=== PATIENT | male | born 1985 | race Caucasian/White ===

== ENCOUNTER → 2017-05-23 | Outpatient (CLI) | payer OTHER ==
--- NOTE | 2017-05-24 10:29 | MRI ---
STUDY: MRI OF THE LUMBAR SPINE HISTORY: Degenerative disc disease L5/S1 level. Comparison: None. Technique: Multiplanar multi-sequence MRI of the lumbar spine was performed. Sagittal T1, sagittal T 2, and STIR images, axial T1, and axial T2 images were obtained. Findings: Sagittal images: Vertebral body heights and alignment are within normal limits. Marrow signal is age- appropriate. There is degenerative endplate change identified, with Modic type 1 change at the opposi ng endplates of L5/S1. There is multilevel degenerative disc disease, most notable at L4/5 and L5/S1. The conus medullaris is normal appearance terminating at the level of L1. Axial images: T12 -- L1: There is bilateral facet arthropathy and ligamentum flavum infolding. The central canal and neural foramina are adequate. L1 -- L2: There is bilateral facet arthropathy and ligamentum flavum infolding. The central canal a nd neural foramina are adequate. L2 -- L3: There is bilateral facet arthropathy and ligamentum flavum infolding. The central canal a nd neural foramina are adequate. L3 -- L4: There is a broad-based disc bulge. There is bilateral facet arthropathy and ligamentum fl avum infolding. This results in mild central canal stenosis. The neural foramina are adequate. L4 -- L5: There is a broad-based disc bulge, bilateral facet arthropathy and ligamentum flavum infol ding. This results in moderate central canal stenosis. The neural foramina are adequate. L5 -- S1: There is a broad-based disc bulge, bilateral facet arthropathy and ligamentum flavum infol ding. There is a superimposed focal right paracentral disc herniation. This results in effacement o f the anterior epidural space, but no significant spinal stenosis. The right neural foramen is adequ ate. There is moderate left neural foraminal stenosis. IMPRESSION: 1. Multilevel lumbar spondylosis, most notable at L5/S1. 2. Disc bulge with focal right paracentral disc herniation at L5/S1. 3. Moderate spinal stenosis at L4/5. 4. Moderate left neural foraminal stenosis at L5/S1. Reported By:
== END | disposition home or self-care (01) ==
LOC: RAD 15:11
PROVIDERS: ATTEND Internal Medicine
DX: M51.36 Other intervertebral disc degeneration, lumbar region (principal); M51.27 Other intervertebral disc displacement, lumbosacral region; M48.061 Spinal stenosis, lumbar region without neurogenic claudication; M47.896 Other spondylosis, lumbar region
CPT/HCPCS: 72148